=== PATIENT | female | born 1965 | race Caucasian/White ===

== ENCOUNTER 2018-07-13 11:27 | Observation (INO) | payer OTHER ==
[~2018-07-13] VITALS: Ht 162.6 cm; Wt 102.8 kg
[2018-07-13] MEDS ORDERED: CLINGEL TOP (11:43)
[2018-07-13] MEDS ORDERED: LIDOCAINE PAIN1 EACH TOP (11:43)
[2018-07-13] MEDS ORDERED: PREG100 PO (11:44)
[2018-07-13] MEDS ORDERED: DULO30 PO (11:44)
[2018-07-13] MEDS ORDERED: METPRE4DP PO (11:45)
[2018-07-13] MEDS ORDERED: Norco 10-325 T1 EACH PO (11:58)
--- NOTE | 2018-07-13 14:43 | NUR ---
INTO [facility] VIA BED. PT A&OX3-REPORTS 3/10 ABDOMINAL PAIN. STATES THAT SHE HAD A SIP OF WATER AT ABOUT 0800 THIS AM.LUNGS CLEAR-SP02 >90% ON RA. Surgical site prepped with 2% Chlorhexidine cloth wipe. History, Chart, Medications and Allergies reviewed before start of procedure.
--- NOTE | 2018-07-13 18:50 | NUR ---
PATIENT STATES PAIN TOLERABLE AFTER PAIN MED ADM. SITTING UP TALKING W/VISITOR. TAKING PO W/O C/O. REPORT TO NAUN MOROCHO.
--- NOTE | 2018-07-14 06:23 | NUR ---
SUMMARY: PT IS POD1 LAP ANNIE. NO ACUTE CONCERNS. VSS, PT VOIDING, UP WITH SBA. PAIN WELL MANAGED WITH 1-2 HYDROCODONE. SURGICAL SITES WNL. TOLERATING DIET, DENIES GAS/NAUSEA THIS AM. WILL CTM AND REPORT TO DAY RN
--- NOTE | 2018-07-14 14:16 | NUR ---
DISCHARGE PT DISCHARGED HOME FROM UNIT AT APROX 1400. PT GIVEN WRITTEN AND VERBAL DISCHARGE INSTRUCTIONS. PT VERBALIZED UNDERSTANDING OF THESE INSTRUCTIONS. IV REMOVED, WHEELCHAIR TO CAR.
--- NOTE | 2018-07-14 14:22 | NUR ---
PT DISCHARGED HOME FROM UNIT AT APROX 1400. PT GIVEN WRITTEN AND VERBAL DISCHARGE INSTRUCTIONS AND VERBALIZED UNDERSTANDING OF THESE INSTRUCTIONS. IV REMOVED, PT DECLINED WRITTEN RX FOR PAIN MEDICATION SHE STATED "SHE HAS PLENTY OF NORCO AT HOME". WHEELCHAIR TO CAR.
[2018-07-25] MEDS ORDERED: KRILL OIL500 MG PO (15:35)
[2018-07-25] MEDS ORDERED: HYDR1TAB94 PO (15:35)
[2018-07-25] MEDS ORDERED: VITAMIN B122500 MC1 PO (15:36)
[2018-07-25] MEDS ORDERED: Vitamin C60 MG PO (15:36)
[2018-07-25] MEDS ORDERED: Vitamin D400 UNI1 PO (15:37)
== END 2018-07-14 14:08 | disposition home or self-care (01) ==
LOC: ER 11:27 → SURS 11:28
PROVIDERS: ADMIT Surgery
PROC: 0FT44ZZ Resection of Gallbladder, Percutaneous Endoscopic Approach (ICD-10-PCS; principal; 2018-07-13 15:30)
DX: K80.12 Calculus of gallbladder with acute and chronic cholecystitis without obstruction (principal); F32.9 Major depressive disorder, single episode, unspecified; E78.5 Hyperlipidemia, unspecified; M79.7 Fibromyalgia; Z79.899 Other long term (current) drug therapy; Z88.2 Allergy status to sulfonamides; Z88.8 Allergy status to other drugs, medicaments and biological substances
CPT/HCPCS: 88304; 96361; 96365; 96366; 96374; 96375; 96376; 99285-25; G0378; J0295; J0690; J1100; J1885; J2250; J2405; J2710; J3010; J7030; J7120

== ENCOUNTER 2018-07-30 10:56 | Day surgery (SDC) | payer OTHER ==
[~2018-07-30] VITALS: Ht 162.6 cm; Wt 102.5 kg
[~2018-07-30 10:56] MED LIST: CLINGEL TOP; DULO30 PO; HYDR1TAB94 PO; KRILL OIL500 MG PO; LIDOCAINE PAIN1 EACH TOP; METPRE4DP PO; Norco 10-325 T1 EACH PO; PREG100 PO; VITAMIN B122500 MC1 PO; Vitamin C60 MG PO; Vitamin D400 UNI1 PO
--- NOTE | 2018-07-30 13:05 | NUR ---
Ambulatory in Day Surgery History, Chart, Medications and Allergies reviewed before start of procedure.Lungs clear T/O to Auscultation. Patient confirms NPO status and agrees with scheduled surgery. Patient States Post-Procedure ride home has been arranged.
[2018-07-30 13:44] LABS: BASOPHILS ABSOLUTE AUTO 0.04 K/mm3 (0.00-0.23); BASOPHILS PERCENT AUTO 1 % (0-2); EOSINOPHILS ABSOLUTE AUTO 0.23 K/mm3 (0.00-0.68); EOSINOPHILS PERCENT AUTO 3 % (0-6); Hematocrit 43.8 % (33.0-51.0); Hemoglobin 14.4 g/dL (11.5-16.0); IMMATURE GRAN ABSOLUTE AUTO 0.03 K/mm3 (0.00-0.10); IMMATURE GRAN PERCENT AUTO 0 % (0-1); LYMPHOCYTES ABSOLUTE AUTO 2.14 K/mm3 (0.84-5.20); LYMPHOCYTES PERCENT AUTO 28 % (21-46); MONOCYTES ABSOLUTE AUTO 0.44 K/mm3 (0.16-1.47); MONOCYTES PERCENT AUTO 6 % (4-13); Mean Corpuscular HGB 28.5 pg (26.0-34.0); Mean Corpuscular HGB Conc 32.9 g/dL (31.5-36.5); Mean Corpuscular Volume 87 fL (80-100); Mean Platelet Volume 11.4 fL (9.1-12.4); NEUTROPHILS PERCENT AUTO 63 % (41-73); Platelet Count 283 K/mm3 (150-400); RDW Coefficient Variation 13.2 % (11.7-14.2); RDW Standard Deviation 41.1 fL (35.1-46.3); Red Blood Cell Count 5.05 M/mm3 (3.80-5.20); White Blood Cell Count 7.68 K/mm3 (4.00-11.30)
--- NOTE | 2018-07-30 16:20 | NUR ---
Patient up to Ambulate independently. Gait steady. Discharge instructions reviewed with patient. Patient verbalizes understanding. Copy given to patient to take home. Discharged via wheelchair to private car for ride home.
--- NOTE | 2018-07-31 16:44 | NUR ---
07/31/18 1644 Iveth Calle VERIFICATIONS: EDIT CHART.
== END 2018-07-30 16:25 | disposition home or self-care (01) ==
LOC: ORSCMMR 10:56 → ORD 12:30 → ORSCMMR 12:45
PROVIDERS: Obstetrics & Gynecology
PROC: 0UPD7HZ Removal of Contraceptive Device from Uterus and Cervix, Via Natural or Artificial Opening (ICD-10-PCS; principal; 2018-07-30 13:15)
DX: T83.32XA Displacement of intrauterine contraceptive device, initial encounter (principal); R10.2 Pelvic and perineal pain; E78.00 Pure hypercholesterolemia, unspecified; M79.7 Fibromyalgia; Z79.899 Other long term (current) drug therapy; E66.01 Morbid (severe) obesity due to excess calories; Z68.38 Body mass index [BMI] 38.0-38.9, adult
CPT/HCPCS: 85025; 88300; J2250; J3010; J7120